=== PATIENT | female | born 1985 | race Caucasian/White ===

== ENCOUNTER 2024-11-27 16:16 | Inpatient (IN) ==
[2024-11-27] MEDS ORDERED: LIDOCAINE 1% LOCAL 20 ML VIAL INFIL PRN (20:24)
[2024-11-27] MEDS ORDERED: ACETAMINOPHEN 500 MG TAB PO PRN (20:24)
[2024-11-27] MEDS ORDERED: CALCIUM CARBONATE 500 MG CHEWABLE TAB PO PRN (20:24)
[2024-11-27] MEDS ORDERED: OXYTOCIN 30 UNITS/NSS 30 UNITS/500 ML BAG IV PRN (20:24)
[2024-11-27 21:31] LABS: Hematocrit (blood only) 34.6 % (37.0-47.0); Hemoglobin 11.6 g/dl (12.0-16.0); Mean Corpuscular Hemoglobin 28.2 pg (25.0-34.0); Mean Corpuscular Volume 84.2 fL (80.0-100.0); Platelet Count 264 K/uL (130-400); RDW Standard Deviation 62.9 fL (36.4-46.3); Red Blood Count 4.11 M/uL (4.20-5.40); White Blood Count 8.04 K/ul (4.8-10.8)
[2024-11-27] MEDS: DINOPROSTONE 10 MG INSERT PV ONE (21:35)
[2024-11-27 21:47] LABS: Alanine Aminotransferase 25.0 U/L (7-52); Albumin Globulin Ratio 1.0 (0.9-2); Alkaline Phosphatase 98.0 U/L (34-104); Anion Gap 8.0 (3-11); Bilirubin,Total 0.3 mg/dl (0.2-1.0); Blood Urea Nitrogen 10.0 mg/dl (6-23); Calcium 8.7 mg/dl (8.6-10.3); Carbon Dioxide 20.0 mmol/L (21-32); Chloride 106.0 mmol/L (98-107); Creatinine Clr Calc Pharmacy 211.0 ml/min; Globulin 3.1 gm/dl (2.5-4.0); Glucose 86.0 mg/dl (70-99(Fasting)); Potassium 3.9 mmol/L (3.5-5.1); Sodium 134.0 mmol/L (136-145); Total Protein 6.3 gm/dl (6.0-8.3)
--- NOTE | 2024-11-27 21:50 | History & Physical Report ---
Date of Service November 27, 2024 Assessment & Plan (1) AMA (advanced maternal age) multigravida 35+: Plan: 39-year-old -0-0-1 at 4039 weeks and 6 days of gestation presenting today for induction of labor for AMA. Vital signs stable afebrile, heart rate reassuring, GBS positive, patient desires intermittent monitoring and ambulation and denies pain medications for now, Plan to admit, monitor, labs, cervical ripening with Cervidil, ambulate, penicillin for GBS, All questions were answered. (2) GBS (group B Streptococcus carrier), +RV culture, currently : (3) History of gastric bypass: Admission and Anticipated Discharge Date Admission Date: November 27, 2024 History of Present Illness Primary Care Provider: NO PCP patient is a 39-year-old -0-0-1 at 39 weeks and 6 days of gestation who was scheduled for induction of labor at term for AMA. She has no complaints. She denies contractions, leakage of fluid, vaginal bleeding. She reports good movements. Her has been complicated by 1. AMA, 2.history of infertility, conceived spontaneously for this . 3.history of gastric bypass surgery in 2019, uncomplicated, 4. history of mild asthma 5. GBS + she has about plan and does not want epidural or any pain medication during labor she will let us know if she changes her mind. She is okay with induction of labor with prostaglandins and she prefers to ambulate and intermittent monitoring. Patient History Social History Smoking Status: Never smoker Second Hand Exposure: No; Hx Alcohol Use: No Hx Substance Use: No Preferred Language: [place]ian [employer] Floorperson Required: No Beliefs That Will Affect Care: None marital status: Current Living Situation: Spouse and Family Feels Safe at Home: Yes Safety Concerns: Feels Safe At This Time Assistive Devices: None OB History full-term in 2021 at [facility] [employer] History no history of STDs, no history of chlamydia, gonorrhea, herpes Review of Systems as per Subjective / HPI Physical Exam Constitutional: WD/WN, vitals as above well developed, well nourished and comfortable Genitourinary: normal external appearance OB Exam Abdomen: + vertex Manual OB Exam: + cervical dilation 2 cm, + cervical effacement 50% and + station -2 OB Exam Monitor Tracing: + external uterine monitor used and + category I Cervidil is placed for cervical ripening Results & Data Vital Signs (Past 12 Hours) Vital Signs Temp Pulse Resp BP 11/27/24 20:48 66 119/58 L 11/27/24 20:40 36.9 C 20 Laboratory Results Lab Results 11/27/24 Range/Units 20:58 WBC 8.04 (4.8-10.8) K/ul RBC 4.11 L (4.20-5.40) M/uL Hgb 11.6 L (12.0-16.0) g/dl Hct 34.6 L (37.0-47.0) % MCV 84.2 (80.0-100.0) fL MCH 28.2 (25.0-34.0) pg MCHC 33.5 (32.0-36.0) g/dL RDW Std Deviation 62.9 H (36.4-46.3) fL RDW Coeff of Ramiro 21.0 H (11.5-14.5) % Plt Count 264 (130-400) K/uL MPV 11.3 (9.4-12.4) fL Sodium 134 L (136-145) mmol/L Potassium 3.9 (3.5-5.1) mmol/L Chloride 106 (98-107) mmol/L Carbon Dioxide 20 L (21-32) mmol/L Anion Gap 8 (3-11) BUN 10 (6-23) mg/dl Creatinine 0.51 L (0.6-1.2) mg/dl Est Cr Clr Drug Dosing 211.0 ml/min eGFR 120.19 BUN/Creatinine Ratio 19.6 (10-20) Glucose 86 (70-99(Fasting)) mg/dl Calcium 8.7 (8.6-10.3) mg/dl Total Bilirubin 0.3 (0.2-1.0) mg/dl AST 30 (13-39) U/L ALT 25 (7-52) U/L Alkaline Phosphatase 98 (34-104) U/L Total Protein 6.3 (6.0-8.3) gm/dl Albumin 3.2 L (3.4-5.0) gm/dl Globulin 3.1 (2.5-4.0) gm/dl Albumin/Globulin Ratio 1.0 (0.9-2) (1) AMA (advanced maternal age) multigravida 35+ Trimester: third trimester Qualified Code(s): O09.523 - Supervision of elderly multigravida, third trimester
[2024-11-28] MEDS: PENICILLIN GK 6 MU in DEXTROSE 5% 250 ML IV STA (04:21)
[2024-11-28] MEDS: LACTATED RINGER'S 1,000 ML IV PRN (04:22)
[2024-11-28] MEDS: PENICILLIN GK 3 MU in DEXTROSE 5% 100 ML IV PRN (08:46)
--- NOTE | 2024-11-28 09:56 | Labor Progress Brief Note ---
Date of Service November 28, 2024 Subjective Reason For Note: Routine Evaluation Assessment & Plan Admission and Anticipated Discharge Date Admission Date: November 27, 2024 Physical Exam Genitourinary: Manual OB Exam: + cervical dilation 3 cm and 4 cm, + cervical effacement 60% and + station high OB Exam Monitor Tracing: + external FHT monitor used, + external uterine monitor used, + category I and + normal FHT variability Cervidil pulled out. Cervix is posterior and soft. Will start Oxytocin to start labor. EFW 7-8 lbs. Results & Data Vital Signs (Past 12 Hours) Vital Signs Temp Pulse Resp BP 11/28/24 07:10 36.8 C 67 16 118/60 11/28/24 05:01 69 136/70 11/28/24 05:00 16 11/28/24 05:00 36.6 C 16 11/28/24 00:16 71 109/59 L 11/28/24 00:15 36.6 C
[2024-11-28] MEDS: OXYTOCIN 30 UNITS/NSS 30 UNITS/500 ML BAG IV PRN (10:07)
[2024-11-28] MEDS: BUPIVACAINE 0.25% PF 30 ML VIAL ONE (13:11)
[2024-11-28] MEDS: fentANYL 2 MCG/ML BUPIVacaine 0.125%-NSS 100ML BAG ONE (13:12)
[2024-11-28] MEDS ORDERED: BUPIVACAINE 0.25% PF 30 ML VIAL EPI PRN (14:03)
[2024-11-28] MEDS ORDERED: ONDANSETRON INJ 2 MG/ML 2 ML VIAL IV PRN (14:03)
[2024-11-28] MEDS ORDERED: SODIUM CHLORIDE 0.9% PF INJ 10 ML VIAL EPI PRN (14:03)
[2024-11-28] MEDS ORDERED: NALBUPHINE HCL INJ 10 MG/ML AMP IV PRN (14:03)
[2024-11-28] MEDS ORDERED: ROPIVACAINE 0.5% PF 5 MG/ML 20 ML VIAL EPI PRN (14:03)
[2024-11-28] MEDS ORDERED: diphenhydrAMINE 50 MG/ML VIAL IV PRN (14:03)
[2024-11-28] MEDS ORDERED: fentANYL 2 MCG/ML BUPIVacaine 0.125%-NSS 100ML BAG EPI PRN (14:03)
[2024-11-28] MEDS ORDERED: NALOXONE HCL 1 MG in SODIUM CHLORIDE 0.9% 1,000 ML IV PRN (14:03)
[2024-11-28] MEDS ORDERED: NALOXONE HCL 0.4 MG/1 ML VIAL/CARP IV PRN (14:03)
[2024-11-28] MEDS ORDERED: LIDOCAINE 2% MPF LOCAL 5 ML VIAL EPI PRN (14:03)
--- NOTE | 2024-11-28 14:08 | Anesthesiology Consultation ---
Date of Service November 28, 2024 Assessment & Plan Chart Review Chart Review: Patient NOT seen in Pre Admission Testing and Acceptable Risk for Labor Epidural Consults Requested none ASA ASA3 Proposed Anesthesia Anesthesia Type: CSE Risk / Benefits Reviewed With: PT / POA / Parent / Guardian, Accepts Plan and Informed Consent Obtained History Height/Weight Height: 5 ft 10 in Weight: 127.459 kg Allergies Allergy/AdvReac Type Severity Reaction Status Date / Time pollen extracts Allergy Sneezing Verified 11/27/24 22:14 latex AdvReac Redness of Verified 11/27/24 22:14 Skin Medications Home Medications Medication Instructions Recorded Confirmed Last Taken albuterol sulfate 90 mcg/actuation 1 inh inhalation QID PRN asthma 11/27/24 11/27/24 Unknown aerosol inhaler calcium citrate 150 mg capsule mg PO 11/27/24 Unknown cyanocobalamin (vitamin B-12) 500 500 mcg PO 11/27/24 Unknown mcg tablet (Vitamin B-12) ferrous sulfate 325 mg (65 mg 325 mg PO 11/27/24 Unknown iron) tablet (Feosol) folic acid 400 mcg tablet 400 mcg PO 11/27/24 Unknown omeprazole 20 mg tablet,delayed 20 mg PO DAILY 11/27/24 11/27/24 Unknown release vit no.95-ferrous 1 tab PO DAILY 11/27/24 11/27/24 Unknown fumarate 28 mg-folic acid 800 mcg tablet () pyridoxine (vitamin B6) 50 mg 50 mg PO DAILY 11/27/24 11/27/24 Unknown tablet (Vitamin B-6) zinc sulfate 50 mg zinc (220 mg) mg 11/27/24 Unknown tablet Active Medications Generic Name Dose Route Start Last Admin Trade Name Mustaphaq PRN Reason Stop Dose Admin Lactated Ringer's 1,000 mls @ 125 mls/hr 11/27/24 20:24 11/28/24 13:39 Lr IV 11/29/24 20:23 125 mls/hr .Q8H PRN Administration L&D Protocol Protocol Penicillin G Potassium 3 mu/ 106 mls @ 100 mls/hr 11/27/24 23:24 11/28/24 12:39 Dextrose IV 12/07/24 23:23 100 mls/hr Q4H PRN Administration GBS(+) Until Delivery Oxytocin 30 units in 500 mls @ 5 mls/hr 11/28/24 09:54 11/28/24 11:15 Pitocin 30 Units/Nss IV 11/30/24 09:53 0.3 units/hr .Q24H PRN 5 mls/hr Labor Induction/Augmentation Titration Protocol 0.3 UNITS/HR Past Medical History Medical History Stomach ulcer Anemia Gestational diabetes mellitus (GDM) Obesity Advanced maternal age in multigravida Asthma Exercise / Class Metabolic Activity II 4-5 Yardwork/Stairs/Walk up hill Past Surgical History Surgical History [place] teeth extracted H/O gastric bypass Past Anesthesia History No Hx of Anesthesia Complications and No Family Hx of Anesthesia Complications History of PONV No Hx of PONV and No Hx of Motion Sickness Social History Smoking Status: Never smoker Hx Alcohol Use: No Hx Substance Use: No substance use type: does not use Physical Exam Vital Signs Last Vital Signs Temp 97.9 F 11/28/24 12:35 Pulse 63 11/28/24 14:02 Resp 20 11/28/24 13:31 BP 106/56 L 11/28/24 13:57 Pulse Ox 98 11/28/24 14:02 ENMT Mouth: no dentition abnormality Thyromental Distance: > or= 3.5 Finger Breadths Mallampati Class: II Neck normal visual inspection Respiratory normal respiratory effort Auscultation: lungs clear to auscultation bilaterally Cardiovascular Rate/Rhythm: regular rate and regular rhythm Testing Laboratory Results 11/27/24 20:58 11/27/24 20:58 Blood Type O Positive 11/27/24 20:58 Antibody Screen NEGATIVE 11/27/24 20:58
--- NOTE | 2024-11-28 14:34 | Labor Progress Brief Note ---
Date of Service November 28, 2024 Assessment & Plan Admission and Anticipated Discharge Date Admission Date: November 27, 2024 Physical Exam Genitourinary: Manual OB Exam: + cervical dilation 9 cm and 10 cm, + cervical effacement 100%, + station 0 and + amniotic fluid clear OB Exam Monitor Tracing: + external FHT monitor used, + external uterine monitor used, + category I, + normal FHT variability and + early decelerations present AROM with Amni-hook clear fluid Results & Data Vital Signs (Past 12 Hours) Vital Signs Temp Pulse Resp BP Pulse Ox 11/28/24 14:27 82 109/65 97 11/28/24 14:22 59 L 98 11/28/24 14:17 62 97 11/28/24 14:13 59 L 107/57 L 11/28/24 14:12 60 98 11/28/24 14:07 61 98 11/28/24 14:02 63 98 11/28/24 13:57 61 106/56 L 97 11/28/24 13:52 59 L 99 11/28/24 13:47 61 98 11/28/24 13:44 65 107/57 L 11/28/24 13:42 73 97 11/28/24 13:38 83 92 11/28/24 13:37 79 97 11/28/24 13:32 63 98 11/28/24 13:31 20 11/28/24 13:31 20 11/28/24 13:27 83 99 11/28/24 13:26 67 115/70 11/28/24 13:24 62 116/66 11/28/24 13:22 86 113/69 98 11/28/24 13:20 75 110/65 11/28/24 13:18 95 H 117/65 11/28/24 13:17 88 99 11/28/24 13:16 67 20 118/59 L 11/28/24 13:14 90 112/66 11/28/24 13:13 80 105/68 11/28/24 13:12 84 99 11/28/24 13:10 77 115/58 L 11/28/24 13:07 75 98 11/28/24 13:04 64 117/55 L 11/28/24 13:02 64 100 11/28/24 12:57 63 99 11/28/24 12:52 67 97 11/28/24 12:35 36.6 C 20 11/28/24 12:35 59 L 120/66 11/28/24 11:18 60 106/57 L 11/28/24 10:08 67 120/68 11/28/24 07:10 36.8 C 67 16 118/60 11/28/24 05:01 69 136/70 11/28/24 05:00 16 11/28/24 05:00 36.6 C 16
[2024-11-28] MEDS ORDERED: HYDROCORTISONE ACETATE 25 MG SUPP PR PRN (16:25)
[2024-11-28] MEDS ORDERED: ALBUTEROL HFA 8 GM INHALER INH PRN (16:25)
[2024-11-28] MEDS ORDERED: OXYTOCIN 30 UNITS/NSS 30 UNITS/500 ML BAG IV PRN (16:25)
[2024-11-28] MEDS ORDERED: BENZOCAINE 20% SPRY 85 APPLN/85 GM CAN EXT PRN (16:25)
--- NOTE | 2024-11-28 16:28 | Delivery Summary ---
Vaginal Delivery Summary Date of Service November 28, 2024 Vaginal Delivery Summary live female OP with nuchal cord x2 and body cord x1 reduced at delivery of head. Apgars 8/9 weight pending. Delayed cord clamping done. Cord blood obtained followed by spontaneous delivery of intact placenta. Vaginal laceration on right side repaired with 3/0 Vicryl. QBL 429 ml. Final sponge, needle and instrument count are correct. Mom and baby stable.
[2024-11-28] MEDS: LIDOCAINE 2%/EPINEPHRINE 1:200,000 20 ML PF ONE (17:03)
[2024-11-28] MEDS: SODIUM CHLORIDE 0.9% PF INJ 10 ML VIAL ONE (17:04)
[2024-11-28] MEDS: BUPIVACAINE 0.25% PF 30 ML VIAL EPI STA (17:05)
[2024-11-28] MEDS: LIDOCAINE 2%/EPINEPHRINE 1:200,000 20 ML PF EPI STA (17:05)
[2024-11-28] MEDS: SODIUM CHLORIDE 0.9% PF INJ 10 ML VIAL EPI STA (17:06)
[2024-11-28] MEDS: DIPHTHER/TETAN/PERTUS Vaccine (Tdap, Adol/Adult) 0.5mL IM ONE (17:06)
--- NOTE | 2024-11-28 18:28 | Anesthesia Procedure Note ---
Date of Service November 28, 2024 Anesthesia Post Epidural Note Vital Signs Vital Signs: Temp Pulse Resp BP Pulse Ox 98.1 F 95 H 20 142/74 H 90 11/28/24 14:00 11/28/24 18:13 11/28/24 17:45 11/28/24 18:13 11/28/24 16:06 Pain Intensity Episiotomy/Laceration: Pain Intensity: 0 Notes Mental Status: alert / awake / arousable and participated in evaluation Nausea / Vomiting: adequately controlled Pain: adequately controlled Airway Patency, RR, SpO2: stable & adequate BP & HR: stable & adequate Hydration State: stable & adequate Neuraxial Anesthesia: was administered and sensory block is resolving Anesthetic Complications: no major complications apparent and Pt Satisfied with anesthetic care Epidural: Removed without complications and With tip intact
[2024-11-28] MEDS: ACETAMINOPHEN 325 MG TAB PO PRN (22:45)
[2024-11-28] MEDS: DOCUSATE SODIUM 100 MG CAP PO SCH (23:05)
[2024-11-29] MEDS: IBUPROFEN 600 MG TAB PO PRN (04:54)
[2024-11-29 06:57] LABS: Hematocrit (blood only) 30.3 % (37.0-47.0); Hemoglobin 10.3 g/dl (12.0-16.0); Mean Corpuscular Hemoglobin 29.0 pg (25.0-34.0); Mean Corpuscular Volume 85.4 fL (80.0-100.0); Platelet Count 227 K/uL (130-400); RDW Standard Deviation 63.6 fL (36.4-46.3); Red Blood Count 3.55 M/uL (4.20-5.40); White Blood Count 9.60 K/ul (4.8-10.8)
[2024-11-29] MEDS: PRENATAL VITAMIN 1 TAB PO SCH (07:58)
[2024-11-29] MEDS: FERROUS SULFATE 325 MG TAB PO SCH (07:58)
[2024-11-29] MEDS: PYRIDOXINE HCL 50 MG TAB PO SCH (07:59)
[2024-11-29] MEDS ORDERED: NON-FORMULARY MEDICATION (Pnv No.95-Ferrous Fumarate-Fa [Prenatal] 28 mg iron- 800 mcg Tab PO SCH (09:00)
[2024-11-29 09:08] VITALS: TEMP 97.5
--- NOTE | 2024-11-29 11:01 | Obstetrical Progress Note ---
Date of Service November 29, 2024 Subjective Ambulation: ambulating normally Voiding: no voiding problems Passing Gas:: Yes Diet Tolerance:: regular diet Lochia:: Small Feeding Type:: breast feeding Current Pain Level(1-10): 0 doing well Physical Exam Constitutional WD/WN, vitals as above Gastrointestinal (Abdomen) Inspection/Auscultation: abdomen normal to inspection Musculoskeletal Extremities: extremities normal to inspection Skin no rashes, warm and dry Neurologic patellar DTR's 2+ bilat, sensation intact Psychiatric A+Ox3, euthymic affect Results & Data Vital Signs (Past 12 Hours) Vital Signs Temp Pulse Resp BP Pulse Ox O2 Del Method 11/29/24 07:57 36.4 C L 64 14 112/74 96 Room Air 11/29/24 05:00 36.5 C 66 16 107/69 96 Room Air 11/29/24 01:00 36.7 C 70 16 128/73 98 Room Air Laboratory Results Laboratory Results - last 72 hr 11/27/24 11/29/24 20:58 06:26 WBC 8.04 9.60 RBC 4.11 L 3.55 L Hgb 11.6 L 10.3 L Hct 34.6 L 30.3 L MCV 84.2 85.4 MCH 28.2 29.0 MCHC 33.5 34.0 RDW Std Deviation 62.9 H 63.6 H RDW Coeff of Ramiro 21.0 H 20.7 H Plt Count 264 227 MPV 11.3 11.6 Sodium 134 L Potassium 3.9 Chloride 106 Carbon Dioxide 20 L Anion Gap 8 BUN 10 Creatinine 0.51 L Est Cr Clr Drug Dosing 211.0 eGFR 120.19 BUN/Creatinine Ratio 19.6 Glucose 86 Calcium 8.7 Total Bilirubin 0.3 AST 30 ALT 25 Alkaline Phosphatase 98 Total Protein 6.3 Albumin 3.2 L Globulin 3.1 Albumin/Globulin Ratio 1.0 Treponema pallidum Ab Negative Blood Type O Positive Antibody Screen NEGATIVE
[2024-11-29 14:09] VITALS: BP 134/79; PULSE 82; RESP 16; O2SAT 99
== END 2024-11-29 17:35 | disposition home or self-care (01) | DRG 807 ==
LOC: 4S1 20:14 → 4E2 11-28 20:32